=== PATIENT | female | born 2000 | race Caucasian/White ===

== ENCOUNTER → 2021-04-03 | Day surgery (SDC) | payer OTHER ==
[~2021-04-03] VITALS: Ht 182.9 cm; Wt 156.5 kg
[~2021-04-03] MED LIST: BUSPIRONE HCL10 MG PO; CETIRIZINE HCL10 MG PO; COLESTID1 GM PO; CONCERTA36 MG PO; FLONASE ALLER15.8 ML; SINEQUAN10 MG PO; TRAZODONE 50MG50 MG PO; [UNRECOGNIZED DRUG - OTHER] TOP
[2021-04-03 09:34] LABS: HCG (URINE) SCREEN NEGATIVE (NEGATIVE)
[2021-04-03 09:59] LABS: HCT 41.8 % (37.0-47.0); HGB 12.8 g/dl (12.5-16.0); MCH 23.4 pg (25.0-31.0); MCHC 30.6 g/dL (32.0-36.0); MCV 76.4 fL (78.0-100.0); MPV 8.9 fL (6.0-9.5); RBC 5.47 M/uL (4.20-5.40); RDW 15.4 % (11.5-14.0); WBC 10.5 K/uL (4.0-10.5)
[2021-04-03 10:49] LABS: ALBUMIN 4.2 g/dL (3.4-5.0); BILIRUBIN - TOTAL 0.6 mg/dL (0.2-1.0); CREATININE 0.81 mg/dL (0.51-0.95); GLOBULIN (CALCULATION) 4.6 g/dL; POTASSIUM 3.9 mmol/L (3.5-5.1); TOTAL PROTEIN 8.8 g/dL (6.4-8.2)
== END | disposition home or self-care (01) ==
LOC: FAS 08:36
PROVIDERS: Surgery
DX: R19.7 Diarrhea, unspecified (principal); K29.50 Unspecified chronic gastritis without bleeding; K21.00 Gastro-esophageal reflux disease with esophagitis, without bleeding; K58.9 Irritable bowel syndrome, unspecified; K63.89 Other specified diseases of intestine
CPT/HCPCS: 36415; 80053; 84703; J2250; J2704; J7120